=== PATIENT | male | born 1950 ===

== ENCOUNTER 2021-06-14 13:07 | Emergency (ER) | payer OTHER ==
[~2021-06-14] VITALS: Ht 167.6 cm; Wt 74.8 kg
[~2021-06-14 13:07] MED LIST: ATACAND16 MG
== END 2021-06-14 14:40 | disposition home or self-care (01) ==
LOC: ER 13:07
DX: S82.62XA Displaced fracture of lateral malleolus of left fibula, initial encounter for closed fracture (principal); W18.39XA Other fall on same level, initial encounter; Y93.89 Activity, other specified; Y92.89 Other specified places as the place of occurrence of the external cause; Y99.8 Other external cause status

== ENCOUNTER 2021-06-15 15:31 | Emergency (ER) | payer OTHER ==
[~2021-06-15] VITALS: Ht 167.6 cm; Wt 74.8 kg
[2021-06-16] MEDS ORDERED: PERCOCET 5-3251 EACH PO (13:10)
[2021-06-16] MEDS ORDERED: ASA325 M1 PO (13:10)
[2021-06-16] MEDS ORDERED: CIPRO500 MG PO (13:10)
== END 2021-06-15 21:26 | disposition home or self-care (01) ==
LOC: ER 15:31
DX: S82.62XA Displaced fracture of lateral malleolus of left fibula, initial encounter for closed fracture (principal); S82.432A Displaced oblique fracture of shaft of left fibula, initial encounter for closed fracture; I10 Essential (primary) hypertension; W18.09XA Striking against other object with subsequent fall, initial encounter; Y93.01 Activity, walking, marching and hiking; Y92.488 Other paved roadways as the place of occurrence of the external cause; Y99.8 Other external cause status; Z20.822 Contact with and (suspected) exposure to COVID-19

== ENCOUNTER 2021-06-16 06:30 | Day surgery (SDC) | payer OTHER ==
[2021-06-16] MEDS ORDERED: PERCOCET 5-3251 EACH PO (13:10)
[2021-06-16] MEDS ORDERED: ASA325 M1 PO (13:10)
[2021-06-16] MEDS ORDERED: CIPRO500 MG PO (13:10)
== END 2021-06-16 17:50 | disposition home or self-care (01) ==
LOC: CIR.AMB 06:30
PROVIDERS: ATTEND Orthopaedic Surgery
DX: S82.62XA Displaced fracture of lateral malleolus of left fibula, initial encounter for closed fracture (principal); S93.491A Sprain of other ligament of right ankle, initial encounter
CPT/HCPCS: 27792; 20902; 27695; C1776

== ENCOUNTER 2021-09-26 23:11 | Emergency (ER) | payer OTHER ==
[~2021-09-26] VITALS: Ht 167.6 cm; Wt 73.9 kg
[~2021-09-26 23:11] MED LIST changes: +ASA325 M1 PO; +CIPRO500 MG PO; +PERCOCET 5-3251 EACH PO
[2021-09-27] MEDS ORDERED: CIPRO500 MG PO (05:30)
== END 2021-09-27 05:39 | disposition home or self-care (01) ==
LOC: ER 23:11
DX: N41.9 Inflammatory disease of prostate, unspecified (principal); R30.0 Dysuria; B95.2 Enterococcus as the cause of diseases classified elsewhere; Z88.0 Allergy status to penicillin; I10 Essential (primary) hypertension

== ENCOUNTER 2021-12-04 10:05 | Outpatient (CLI) | payer OTHER | END 2021-12-04 10:08 | disposition home or self-care (01) | LOC: MRI 10:05 | PROVIDERS: ATTEND Physical Medicine & Rehabilitation Sports Medicine | DX: M54.51 Vertebrogenic low back pain (principal); M54.16 Radiculopathy, lumbar region | CPT/HCPCS: 72148 ==